=== PATIENT | male | born 1950 | race Caucasian/White ===

== ENCOUNTER 2022-12-13 10:16 | Outpatient (RCR) | payer MEDICARE, BC, SELFPAY | END 2022-12-14 23:59 | disposition home or self-care (01) | LOC: CR 10:16 | PROVIDERS: PCP Family Medicine; Referring Provider Internal Medicine Cardiovascular Disease; Visit Provider Internal Medicine Cardiovascular Disease | DX: I25.2 Old myocardial infarction (principal); Z95.5 Presence of coronary angioplasty implant and graft; Z51.89 Encounter for other specified aftercare | CPT/HCPCS: S9472 ==

== ENCOUNTER 2023-01-10 10:00 | Outpatient (RCR) | payer MEDICARE, BC, SELFPAY | END 2023-01-11 23:59 | disposition home or self-care (01) | LOC: CR 10:00 | PROVIDERS: PCP Family Medicine; Referring Provider Internal Medicine Cardiovascular Disease; Visit Provider Internal Medicine Cardiovascular Disease | DX: I25.2 Old myocardial infarction (principal); Z95.5 Presence of coronary angioplasty implant and graft | CPT/HCPCS: S9472 ==

== ENCOUNTER 2023-02-11 10:00 | Outpatient (RCR) | payer MEDICARE, BC, SELFPAY | END 2023-02-11 23:59 | disposition home or self-care (01) | LOC: CR 10:00 | PROVIDERS: PCP Family Medicine; Referring Provider Internal Medicine Cardiovascular Disease; Visit Provider Internal Medicine Cardiovascular Disease | DX: I25.2 Old myocardial infarction (principal); Z95.5 Presence of coronary angioplasty implant and graft | CPT/HCPCS: S9472 ==

== ENCOUNTER 2023-03-11 10:50 | Outpatient (RCR) | payer MEDICARE, BC, SELFPAY | END 2023-03-13 23:59 | disposition home or self-care (01) | LOC: CR 10:50 | PROVIDERS: PCP Family Medicine; Visit Provider Internal Medicine Cardiovascular Disease | DX: I25.2 Old myocardial infarction (principal); Z95.5 Presence of coronary angioplasty implant and graft; Z51.89 Encounter for other specified aftercare | CPT/HCPCS: S9472 ==